=== PATIENT | female | born 1985 | race Caucasian/White ===

== ENCOUNTER 2017-01-25 19:26 | Emergency (ER) | payer OTHER | END 2017-01-25 21:45 | disposition home or self-care (01) | LOC: D.ER 19:26 | DX: S61.213A Laceration without foreign body of left middle finger without damage to nail, initial encounter (principal); W26.0XXA Contact with knife, initial encounter; Y93.89 Activity, other specified; Y92.019 Unspecified place in single-family (private) house as the place of occurrence of the external cause; M54.5 Low back pain; K21.9 Gastro-esophageal reflux disease without esophagitis ==

== ENCOUNTER 2017-03-01 17:41 | Emergency (ER) | payer OTHER | END 2017-03-01 22:30 | disposition home or self-care (01) | LOC: D.ER 17:41 | DX: M54.5 Low back pain (principal); K21.9 Gastro-esophageal reflux disease without esophagitis ==

== ENCOUNTER 2017-04-25 19:24 | Emergency (ER) | payer OTHER ==
[2017-04-25 20:03] LABS: BASOPHILS 0.1 % (0-2); EOSINOPHILS 2.5 % (0-7); HEMATOCRIT 45.7 % (36.0-48.0); HEMOGLOBIN 15.4 g/dL (12-16); IMMATURE GRANULOCYTES 0.2 % (0-5); LYMPHOCYTES 21.5 % (15-50); MCH 33.9 pg (26.0-34.0); MCHC 33.7 g/dL (31.0-37.0); MCV 100.7 fL (80.0-100.0); MEAN PLATELET VOLUME 9.8 fL (7.4-10.4); MONOCYTES 6.8 % (2-11); NEUTROPHILS 68.9 % (40-80); PLATELET COUNT 158 10x3/uL (130-400); RBC 4.54 10x6/uL (4.00-5.40); WBC 8.8 10x3/uL (4.8-10.8)
[2017-04-25 20:25] LABS: ALBUMIN 3.7 g/dL (3.4-5.0); ALKALINE PHOSPHATASE 79 U/L (46-116); ALT (SGPT) 22 U/L (10-68); BILIRUBIN - TOTAL 0.46 mg/dL (0.2-1.3); CALC OSMOLALITY 273 mosm/kg (275-300); CALCIUM 9.1 mg/dL (8.5-10.1); CARBON DIOXIDE 25.5 mmol/L (21.0-32.0); CHLORIDE - SERUM 103 mmol/L (98-107); CREATININE - SERUM 0.8 mg/dL (0.6-1.3); GLUCOSE 110 mg/dL (74-106); POTASSIUM - SERUM 3.8 mmol/L (3.5-5.1); PROTEIN - SERUM 7.5 g/dL (6.4-8.2); SODIUM 138 mmol/L (136-145); UREA NITROGEN 5 mg/dL (7-18); eGFR NON AFRICAN AMERICAN 87 mL/min (90-120)
[2017-04-25 20:31] LABS: APPEARANCE CLEAR (CLEAR); BILIRUBIN NEGATIVE (NEGATIVE); COLOR YELLOW (YELLOW); GLUCOSE NEGATIVE (NEGATIVE); KETONE NEGATIVE (NEGATIVE); LEUKOCYTE ESTERASE TRACE (NEGATIVE); NITRITE NEGATIVE (NEGATIVE); PROTEIN NEGATIVE (NEGATIVE); UROBILINOGEN NORMAL (NORMAL)
[2017-04-25 20:32] LABS: HCG - QUANTITATIVE (MATERNAL) 0 mIU/mL
[2017-04-25 20:33] LABS: BACTERIA FEW /hpf (NONE SEEN); EPITHELIAL CELLS 0-5 /hpf (0-5); RED CELLS - URINE 0-5 /hpf (0-5); WHITE CELLS - URINE 0-5 /hpf (0-5)
[2017-04-25 20:36] LABS: HCG SERUM NEGATIVE (NEGATIVE)
[2017-04-25 20:37] LABS: AMYLASE - SERUM 56 U/L (25-115); LIPASE 311 U/L (73-393)
[2017-04-25 20:38] LABS: UDS - AMPHET NEGATIVE QUAL (NEGATIVE); UDS - BARB NEGATIVE QUAL (NEGATIVE); UDS - BENZO NEGATIVE QUAL (NEGATIVE); UDS - COCAINE NEGATIVE QUAL (NEGATIVE); UDS - METH NEGATIVE QUAL (NEGATIVE); UDS - OPIATE NEGATIVE QUAL (NEGATIVE); UDS - PCP NEGATIVE QUAL (NEGATIVE); UDS - THC NEGATIVE QUAL (NEGATIVE)
== END 2017-04-25 22:52 | disposition home or self-care (01) ==
LOC: D.ER 19:24
PROVIDERS: Emergency Medicine; Nurse Practitioner Acute Care
DX: R10.9 Unspecified abdominal pain (principal); M54.5 Low back pain; K21.9 Gastro-esophageal reflux disease without esophagitis; F17.200 Nicotine dependence, unspecified, uncomplicated

== ENCOUNTER → 2017-08-01 08:30 | Outpatient (CLI) | payer OTHER | END | disposition home or self-care (01) | LOC: D.US 08:30 | DX: A06.9 Amebiasis, unspecified (principal) ==

== ENCOUNTER 2017-09-25 18:37 | Emergency (ER) | payer OTHER ==
[2017-09-25 19:19] LABS: APPEARANCE HAZY (CLEAR); BILIRUBIN NEGATIVE (NEGATIVE); COLOR DK YELLOW (YELLOW); GLUCOSE NEGATIVE (NEGATIVE); KETONE NEGATIVE (NEGATIVE); NITRITE NEGATIVE (NEGATIVE); PROTEIN NEGATIVE (NEGATIVE); UROBILINOGEN NORMAL (NORMAL)
[2017-09-25 19:32] LABS: BASOPHILS 0.1 % (0-2); EOSINOPHILS 2.7 % (0-7); HEMATOCRIT 45.3 % (36.0-48.0); HEMOGLOBIN 15.2 g/dL (12-16); IMMATURE GRANULOCYTES 0.1 % (0-5); LYMPHOCYTES 19.5 % (15-50); MCH 33.3 pg (26.0-34.0); MCHC 33.6 g/dL (31.0-37.0); MCV 99.3 fL (80.0-100.0); MEAN PLATELET VOLUME 10.7 fL (7.4-10.4); MONOCYTES 8.1 % (2-11); NEUTROPHILS 69.5 % (40-80); PLATELET COUNT 180 10x3/uL (130-400); RBC 4.56 10x6/uL (4.00-5.40); RDW 12.5 % (11.5-14.5); WBC 9.2 10x3/uL (4.8-10.8)
[2017-09-25 19:57] LABS: ALBUMIN 3.7 g/dL (3.4-5.0); ALKALINE PHOSPHATASE 101 U/L (46-116); ALT (SGPT) 54 U/L (10-68); AMYLASE - SERUM 42 U/L (25-115); CALC OSMOLALITY 281 mosm/kg (275-300); CALCIUM 9.6 mg/dL (8.5-10.1); CARBON DIOXIDE 29.8 mmol/L (21.0-32.0); CHLORIDE - SERUM 101 mmol/L (98-107); CREATININE - SERUM 0.8 mg/dL (0.6-1.3); GLUCOSE 128 mg/dL (74-106); LIPASE 145 U/L (73-393); POTASSIUM - SERUM 4.6 mmol/L (3.5-5.1); PROTEIN - SERUM 6.8 g/dL (6.4-8.2); SODIUM 141 mmol/L (136-145); UREA NITROGEN 9 mg/dL (7-18); eGFR NON AFRICAN AMERICAN 87 mL/min (90-120)
== END 2017-09-25 22:15 | disposition home or self-care (01) ==
LOC: D.ER 18:37
PROVIDERS: Nurse Practitioner Family
DX: R10.9 Unspecified abdominal pain (principal); R11.10 Vomiting, unspecified

== ENCOUNTER 2018-01-26 06:07 | Emergency (ER) | payer OTHER ==
[2018-01-26 06:41] LABS: HEMATOCRIT 44.5 % (36.0-48.0); HEMOGLOBIN 14.6 g/dL (12-16); LYMPHOCYTES 20.8 % (15-50); MCH 30.6 pg (26.0-34.0); MCHC 32.8 g/dL (31.0-37.0); MCV 93.3 fL (80.0-100.0); MEAN PLATELET VOLUME 10.7 fL (7.4-10.4); NEUTROPHILS 70.8 % (40-80); PLATELET COUNT 170 10x3/uL (130-400); RBC 4.77 10x6/uL (4.00-5.40); RDW 13.6 % (11.5-14.5); WBC 7.3 10x3/uL (4.8-10.8)
[2018-01-26 06:56] LABS: APPEARANCE CLOUDY (CLEAR); BILIRUBIN NEGATIVE (NEGATIVE); COLOR YELLOW (YELLOW); GLUCOSE NEGATIVE (NEGATIVE); KETONE NEGATIVE (NEGATIVE); NITRITE NEGATIVE (NEGATIVE); PROTEIN NEGATIVE (NEGATIVE); UROBILINOGEN NORMAL (NORMAL)
[2018-01-26 07:06] LABS: BACTERIA MANY /hpf (NONE SEEN); MUCUS <1+ /lpf (NONE SEEN); RED CELLS - URINE 0-5 /hpf (0-5)
[2018-01-26 07:56] LABS: HCG SERUM NEGATIVE (NEGATIVE)
[2018-01-26 08:00] LABS: ALBUMIN 3.2 g/dL (3.4-5.0); ALKALINE PHOSPHATASE 88 U/L (46-116); ALT (SGPT) 13 U/L (10-68); AMYLASE - SERUM 47 U/L (25-115); BILIRUBIN - TOTAL 0.33 mg/dL (0.2-1.3); CALC OSMOLALITY 281 mosm/kg (275-300); CALCIUM 9.3 mg/dL (8.5-10.1); CARBON DIOXIDE 27.7 mmol/L (21.0-32.0); CHLORIDE - SERUM 106 mmol/L (98-107); CREATININE - SERUM 0.8 mg/dL (0.6-1.3); GLUCOSE 88 mg/dL (74-106); LIPASE 203 U/L (73-393); POTASSIUM - SERUM 4.4 mmol/L (3.5-5.1); PROTEIN - SERUM 7.1 g/dL (6.4-8.2); SODIUM 143 mmol/L (136-145); UREA NITROGEN 6 mg/dL (7-18); eGFR NON AFRICAN AMERICAN 87 mL/min (90-120)
== END 2018-01-26 11:10 | disposition home or self-care (01) ==
LOC: D.ER 06:07
PROVIDERS: Emergency Medicine
DX: N39.0 Urinary tract infection, site not specified (principal); R10.32 Left lower quadrant pain; F17.200 Nicotine dependence, unspecified, uncomplicated

== ENCOUNTER 2018-02-13 18:57 | Emergency (ER) | payer OTHER | END 2018-02-13 20:45 | disposition home or self-care (01) | LOC: D.ER 18:57 | DX: S20.211A Contusion of right front wall of thorax, initial encounter (principal); W19.XXXA Unspecified fall, initial encounter; Y93.89 Activity, other specified; Y92.019 Unspecified place in single-family (private) house as the place of occurrence of the external cause; F17.200 Nicotine dependence, unspecified, uncomplicated ==

== ENCOUNTER 2018-03-17 17:51 | Emergency (ER) | payer OTHER ==
[2018-03-17 18:36] LABS: BASOPHILS 0.2 % (0-2); EOSINOPHILS 3.6 % (0-7); HEMATOCRIT 40.7 % (36.0-48.0); HEMOGLOBIN 13.5 g/dL (12-16); IMMATURE GRANULOCYTES 0.2 % (0-5); LYMPHOCYTES 21.2 % (15-50); MCH 30.4 pg (26.0-34.0); MCHC 33.2 g/dL (31.0-37.0); MCV 91.7 fL (80.0-100.0); MEAN PLATELET VOLUME 9.8 fL (7.4-10.4); MONOCYTES 6.7 % (2-11); NEUTROPHILS 68.1 % (40-80); RBC 4.44 10x6/uL (4.00-5.40); WBC 9.4 10x3/uL (4.8-10.8)
[2018-03-17 18:37] LABS: PLATELET COUNT 206 10x3/uL (130-400)
[2018-03-17 18:37] LABS: APPEARANCE TURBID (CLEAR); BILIRUBIN NEGATIVE (NEGATIVE); COLOR AMBER (YELLOW); GLUCOSE NEGATIVE (NEGATIVE); KETONE SMALL mg/dL (NEGATIVE); NITRITE NEGATIVE (NEGATIVE); PROTEIN 1+ mg/dL (NEGATIVE); UROBILINOGEN NORMAL (NORMAL)
[2018-03-17 18:51] LABS: BACTERIA MODERATE /hpf (NONE SEEN); EPITHELIAL CELLS OCC /hpf (0-5); RED CELLS - URINE >50 /hpf (0-5); WHITE CELLS - URINE 0-5 /hpf (0-5)
[2018-03-17 18:56] LABS: HCG SERUM NEGATIVE (NEGATIVE)
== END 2018-03-17 20:34 | disposition home or self-care (01) ==
LOC: D.ER 17:51
PROVIDERS: Emergency Medicine
DX: N30.00 Acute cystitis without hematuria (principal); F17.200 Nicotine dependence, unspecified, uncomplicated

== ENCOUNTER 2018-03-19 00:31 | Emergency (ER) | payer OTHER ==
[2018-03-19 01:04] LABS: HCG URINE NEGATIVE (NEGATIVE)
[2018-03-19 01:09] LABS: APPEARANCE CLOUDY (CLEAR); COLOR ORANGE (YELLOW)
[2018-03-19 01:11] LABS: BACTERIA MODERATE /hpf (NONE SEEN); EPITHELIAL CELLS 0-5 /hpf (0-5); WHITE CELLS - URINE 0-5 /hpf (0-5)
[2018-03-19 01:24] LABS: BASOPHILS 0.1 % (0-2); EOSINOPHILS 3.1 % (0-7); HEMATOCRIT 39.9 % (36.0-48.0); HEMOGLOBIN 13.4 g/dL (12-16); IMMATURE GRANULOCYTES 0.3 % (0-5); LYMPHOCYTES 12.7 % (15-50); MCH 30.2 pg (26.0-34.0); MCHC 33.6 g/dL (31.0-37.0); MCV 89.9 fL (80.0-100.0); MEAN PLATELET VOLUME 9.8 fL (7.4-10.4); MONOCYTES 7.1 % (2-11); NEUTROPHILS 76.7 % (40-80); PLATELET COUNT 198 10x3/uL (130-400); RBC 4.44 10x6/uL (4.00-5.40); RDW 13.9 % (11.5-14.5); WBC 10.3 10x3/uL (4.8-10.8)
[2018-03-19 01:38] LABS: ALKALINE PHOSPHATASE 91 U/L (46-116); ALT (SGPT) 13 U/L (10-68); AMYLASE - SERUM 41 U/L (25-115); BILIRUBIN - TOTAL 0.32 mg/dL (0.2-1.3); CALC OSMOLALITY 275 mosm/kg (275-300); CALCIUM 8.8 mg/dL (8.5-10.1); CARBON DIOXIDE 23.4 mmol/L (21.0-32.0); CHLORIDE - SERUM 106 mmol/L (98-107); CREATININE - SERUM 0.9 mg/dL (0.6-1.3); GLUCOSE 107 mg/dL (74-106); LIPASE 142 U/L (73-393); POTASSIUM - SERUM 4.1 mmol/L (3.5-5.1); SODIUM 140 mmol/L (136-145); UREA NITROGEN 4 mg/dL (7-18); eGFR NON AFRICAN AMERICAN 76 mL/min (90-120)
== END 2018-03-19 03:47 | disposition home or self-care (01) ==
LOC: D.ER 00:31
PROVIDERS: Family Medicine
DX: N39.0 Urinary tract infection, site not specified (principal); N30.00 Acute cystitis without hematuria; F17.200 Nicotine dependence, unspecified, uncomplicated

== ENCOUNTER 2018-03-22 08:17 | Emergency (ER) | payer OTHER | END 2018-03-22 10:32 | disposition home or self-care (01) | LOC: D.ER 08:17 | DX: M54.5 Low back pain (principal); W06.XXXA Fall from bed, initial encounter; Y93.89 Activity, other specified; Y92.013 Bedroom of single-family (private) house as the place of occurrence of the external cause; F17.200 Nicotine dependence, unspecified, uncomplicated ==

== ENCOUNTER 2018-05-19 16:09 | Emergency (ER) | payer OTHER ==
[~2018-05-19] VITALS: Ht 165.1 cm; Wt 79.5 kg
[2018-05-19 16:10] VITALS: Ht 165.1 cm; Wt 79.5 kg
[2018-05-19] MEDS ORDERED: TRAZODONE HCL150 MG PO (16:15)
[2018-05-19] MEDS ORDERED: PROVENTIL/2.5 MG/3 M INH (16:16)
[2018-05-19] MEDS ORDERED: HYDROCODON-ACE1 EAC9 PO (16:16)
[2018-05-19] MEDS ORDERED: LOPRESSOR25 MG PO (16:17)
[2018-05-19] MEDS ORDERED: MOBIC7.5 MG PO (17:58)
[2018-05-19 18:11] VITALS: BP 109/75
== END 2018-05-19 18:15 | disposition home or self-care (01) ==
LOC: D.ER 16:09
DX: R10.9 Unspecified abdominal pain (principal); M54.9 Dorsalgia, unspecified; Z91.81 History of falling